=== PATIENT | male | born 1970 | race Caucasian/White ===

== ENCOUNTER 2024-12-17 14:33 | Emergency (ER) | payer BC, SELFPAY ==
[2024-12-17 14:41] VITALS: BP 134/88; PULSE 92; RESP 20; TEMP 36.7; O2SAT 97; BMI 28.4
--- NOTE | 2024-12-17 15:14 | ED.GENADULT ---
HPI - General Adult General Chief complaint: Unspecified Complaint, Adult Stated complaint: facial swelling Time Seen by Provider: 12/17/24 14:35 History of Present Illness HPI narrative: This 54-year-old male comes in with swelling in his left parotid area. He states that he notice this happening about 3 hours ago while eating lunch. He does not report any fever. He does have some pain in this area. He does not have any dental pain or ear pain. Related Data Home Medications ?Medication ?Instructions ?Recorded ?Confirmed No Known Home Medications 12/17/24 12/17/24 Allergies Allergy/AdvReac Type Severity Reaction Status Date / Time No Known Drug Allergies Allergy Verified 12/17/24 14:40 Review of Systems Status of ROS: Reports: 10 or more systems reviewed and unremarkable except as noted in History and below Narrative: Constitutional: No fevers, no weight gain or loss. Eyes: No discharge. No vision changes. HENT: No congestion, no sore throat, no ear pain. Cardiovascular: No chest pain, no palpitations. Respiratory: No shortness of breath, no wheezes, no cough. Gastrointestinal: No abdominal pain, no vomiting, no diarrhea. Genitourinary: No dysuria, no hematuria. Musculoskeletal: Normal range of motion. Skin: No rashes, no pruritis. Neurological: No dizziness, weakness, sensory change, speech change. Endo/Heme/Allergies: No bruising or bleeding. No polydipsia. Pysch: no suicidality, no anxiety, no insomnia. All other systems reviewed and are negative. Exam Narrative: Exam Narrative: Constitutional: Well-developed, well-nourished, no acute distress. HEENT: Left parotid area is distinctly larger than the right. The left parotid gland is palpable with a well-defined border. Oral exam appears normal. I do not see a prominence of the left Stensen's duct. Neck: Normal range of motion. Nontender. Supple. Heart: Regular. No murmurs. Normal rate. Intact distal pulses. Lungs: Clear to auscultation. No chest discomfort. No wheezes, rhonchi, or rales. Abdomen: Normal bowel sounds. Nontender. No rebound tenderness. Genitalia: Deferred. Back: No midline tenderness. Normal range of motion. Extremities: Normal range of motion. No injury. Skin: Intact. No rash. Warm. No erythema or pallor. Neurologic: No altered sensation. No weakness. Alert and oriented. Psychiatric: No suicidality. No anxiety or depression. No insomnia. Nursing notes and vitals signs are reviewed. Const: Vital Signs, click to edit/add: Vital Signs - 24 hr 12/17/24 14:41 Temperature 98.1 F Pulse Rate [Pulse Oximeter] 92 Respiratory Rate 20 Blood Pressure [Ri ght Upper Arm] 134/88 Pulse Oximetry 97 Oxygen Delivery Me thod Room Air Course Vital Signs Vital signs: Initial Vital Signs Temperature 98.1 F 12/17/24 14:41 Temperature Source Temporal Artery Scan 12/17/24 14:41 Pulse Rate 92 12/17/24 14:41 Respiratory Rate 20 12/17/24 14:41 Blood Pressure 134/88 12/17/24 14:41 Blood Pressure Mean 103 12/17/24 14:41 Pulse Oximetry 97 12/17/24 14:41 Oxygen Delivery Method Room Air 12/17/24 14:41 Vital Signs Temperature 98.1 F 12/17/24 14:41 Pulse Rate 92 12/17/24 14:41 Respiratory Rate 20 12/17/24 14:41 Blood Pressure 134/88 12/17/24 14:41 Pulse Oximetry 97 12/17/24 14:41 Oxygen Delivery Method Room Air 12/17/24 14:41 Temperature 98.1 F 12/17/24 14:41 Pulse Rate 92 12/17/24 14:41 Respiratory Rate 20 12/17/24 14:41 Blood Pressure 134/88 12/17/24 14:41 Pulse Oximetry 97 12/17/24 14:41 Oxygen Delivery Method Room Air 12/17/24 14:41 Medical Decision Making MDM Narrative Medical decision making narrative: This patient has a rather sudden and distinct onset of swelling in the left parotid gland region. This is much more typical of sialoadenitis. He is not showing any signs of infection. This all generated in the last couple hours. I did discuss the role of CT imaging but indicated that this condition is typically treated with conservative measures including milking the gland, warm compress, and sucking on hard candy such as lemon drops that will stimulate saliva production. I did advise him regarding signs and symptoms that would indicate a need for CT imaging or further evaluation. The patient is okay to be discharged home. I did provide an [employer] prescription for Toradol. Discharge Plan Discharge Clinical Impression: Acute sialoadenitis Patient Disposition: Home, Self-Care Condition: Unchanged Additional Instructions: Apply warm compress and gently milked the gland to facilitate drainage. Use hard candy such as lemon drops to stimulate saliva production. Take medication prescribed as needed and directed. Follow up with MD return if worsening symptoms occur. Prescriptions: No Action No Known Home Medications Stand Alone Forms: [employer] Info Instructions
--- OUTSIDE RECORDS SUMMARY | 2024-12-17 15:34 | XMS_ITS | Clinical Summary ---
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 Gender Identity Not on file Sexual Orientation Not on file Obstetrics History Last Filed Vital Signs Vital Sign Reading Time Taken Comments Blood Pressure 135/81 08/22/2014 2:01 PM CDT Pulse 69 08/22/2014 2:01 PM CDT Temperature 36.4 C (97.6 F) 08/22/2014 2:01 PM CDT Respiratory Rate 14 08/22/2014 2:01 PM CDT Oxygen Saturation 97% 08/22/2014 2:01 PM CDT Inhaled Oxygen Concentration - - Weight - - Height - - Body Mass Index - - Plan of Treatment Not on file Insurance [place] [id number] [place] [id number] Care Teams Flue Tile Press Operator Relationship Specialty Start Date End Date None . PCP - General 08/22/14
--- OUTSIDE RECORDS SUMMARY | 2024-12-17 15:34 | XMS_ITS | Clinical Summary ---
Author Organization [facility] Address [address] [place] [address] Care Team Providers Care Insurance Agents Supervisor Name Role Phone Elsewhere, Pcp Primary Care Provider Unavailabl e Source Comments Patient records contain information from all sites at [facility]. For routine questions regarding patient records, call [phone] during business hours, M-F 8:00 AM - 5:00 PM Central Time. Record requests for emergency care only can be directed to [phone] at any time.[facility] Allergies No known active allergies Medications * This document contains information received from the source organization and may not represent a complete record from that organization. naproxen (NAPROSYN) 500 mg tablet Take 1 tablet (500 mg total) by mouth 2 (two) times a day as needed for pain (pain). 30 tablet 05/29/2021 Active omeprazole (PriLOSEC) [address] Louis ons:Hiccup Take 1 capsule (20 mg total) by mouth daily. 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 from request for surgery [id number] Dizziness 07/21/2020 Resolved Problems Problem Noted Date Diagnosed Date Resolved Date Myringotomy Tube 08/16/2020 10/19/2020 Overview (08/16/2020): Added automatically from request for surgery [id number] Immunizations Immunization Administration Dates Next Due HepB Adult 12/27/2011,08/10/2011,07/05/2011 Td Preservative Free (TENIVAC, DECAVAC) 09/04/19 00 influenza LAIV (Nasal) (2 ye ars through 49 years) 01/05/2021,12/07/2019 Social History Tobacco Use Types Packs/Day Years Used Date Smoking Tobacco: Former Cigarettes Q uit: 02/11/2019 Smokeless Tobacco: Never Tobacco Cessation:Counseling Given: Not Answered Alcohol Use Standard Drinks/Week Comments Yes 0 (1 standard drink = 0.6 oz pur e alcohol) Humiliation, Afraid, Rape, and Kick questionnair e Answer Date Recorded Within the last year, have y ou been afraid of your partner or ex-partner? No 05/29/2021 Within the last year, have y ou been humiliated or emotionally abused in other ways by your partner or ex-partner? No Within the last year, have y ou been kicked, hit, slapped, or otherwise physically hurt by your partner or ex-partner? No 05/29/2021 Within the last year, have y ou been raped or forced to have any kind of sexual activity by your partner or ex-partner? No 05/29/2021 Hunger Vital Sign Answer Date Recorded Within the past 12 months, y ou worried that your food would run out before you got the money to buy more. Never true 05/30/19 22 Within the past 12 months, t he food you bought just didn't last and you didn't have money to get more. Never true 05/29/2021 PRAPARE - Transportation Answer Date Re corded In the past 12 months, has l ack of transportation kept you from medical appointments or from getting medications? No 09/2021 In the past 12 months, has l ack of transportation kept you from meetings, work, or from getting things needed for daily living? No 05/29/2021 Housing Stability Vital Sign Answer Massimo e Recorded In the last 12 months, was t here a time when you were not able to pay the mortgage or rent on time? No 05/29/2021 In the last 12 months, how many places have you lived? 1 05/29/2021 In the last 12 months, was t here a time when you did not have a steady place to sleep or slept in a custodial (including now)? No 05/29/2021 Education Answer Date Recorded What is the highest level of school you have completed or the highest degree you have received? Some college, no degree 06/20/2020 Sex and Gender Information Value Date Recorded Sex Assigned at Male 12/23/2020 1:45 AM CDT Legal Sex Male 4:22 PM STUNT MAN Gender Identity Male 06/20/2020 12:12 PM CDT Sexual Orientation Straight 06/20/2020 12 :12 PM CDT Last Filed Vital Signs Vital Sign Reading Time Taken Comments Blood Pressure 121/84 01/23/2023 5:39 PM CDT Pulse 65 01/23/2023 5:39 PM CDT Temperature 36.9 C (98.4 F) 01/23/2023 5:39 PM CDT Respiratory Rate 20 09/08/2021 4:47 PM CDT Oxygen Saturation 98% 01/23/2023 5:39 PM CDT Inhaled Oxygen Concentration - - Weight 89.5 kg (197 lb 5 oz) 09/08/2021 4:47 PM CDT Height 175 cm (5' 8.9) 09/05/2020 9:08 AM CDT Body Mass Index 29.22 09/05/2020 9:08 AM CDT Plan of Treatment Health Maintenance Due Date Last Done Comments CT Colonography 1972 Cologuard 1972 Colonoscopy 1972 Colorectal Cancer Screening 1972 FIT 1972 HIV Screening 1972 Hepatitis C Screening 1972 Lipid (Cholesterol) Screening 1972 DTaP,Tdap,and Td Vaccines (1 - Tdap) 09/05/1999 09/04/1999 Pneumococcal vaccine (50+ years) (1 of 1 - PCV) 2022 Zoster Vaccines (1 of 2) 2022 Depression Screening (Annual PHQ-2) 03/25/2024 COVID-19 Vaccine ( season) 2024 01/31/2022, 03/09/2021, 06/30/2020, Additional history exists Influenza Vaccine (#1) 2024 2, 01/05/2021, 12/07/2019 Fasting Glucose for Diabetes Screening 01/23/2026 01/23/2023, 06/20/2020 Hepatitis B Vaccines Completed 12/27/2011, 08/10/2011, 07/05/2011 IPV Vaccines Aged Out No longer eligi ble based on patient's age to complete this topic Medical Devices Implanted Type Area Top Collar Maker Device Identifier Shelf Expiration Date Model / Serial / Lot Ear Implant Ear Implant Ear Description:Right Ear Procedures Procedure Name Priority Date/Time Associated Diagnosis Comments BASIC METABOLIC PANEL, S/P Routine 01/23/2023 6:37 PM CDT Hiccup from Last 3 Months or Most Recently Relevant to Health Maintenance Results * Basic Metabolic Panel (01/23/2023 6:37 PM CDT) Potassium, P 4.4 3.6 - 5.2 mmol/L 01/23/2023 7:00 PM CDT [facility] Sodium, P 139 135 - 145 mmol/L 01/23/2023 7:00 PM CDT [facility] Chloride, P 103 98 - 107 mmol/L 01/23/2023 7:00 PM CDT [employer] Bicarbonate, P 22 22 - 29 mmol/L 01/23/2023 7:00 PM CDT [employer] Anion Gap, P 14 7 - 15 01/23/2023 7:00 PM CDT [facility] BUN (Blood Urea Nitrogen), P 14 8 - 24 mg/dL 01/23/2023 7:00 PM CDT [facility] Creatinine 1.11 0.74 - 1.35 mg/dL 01/23/2023 7:00 PM CDT [facility] Estimated GFR (eGFR) 81 >=60 mL/min/BSA 01/23/2023 7:00 PM CDT OW[facility] Comment: Estimated GFR calculated using the 2020 CKD_EPI creatinine equation. Calcium, Total, P 9.6 8.6 - 10.0 mg/dL 01/23/2023 7:00 PM CDT OW[facility] Glucose, P 102 70 - 140 mg/dL 01/23/2023 7:00 PM CDT [facility] Blood (Blood, Venous) 01/23/2023 6:37 PM CDT 01/23/2023 6:38 PM CDT Dorota Smith APRN, C.N.P., D.N.P. LAB BLOOD ADD- ON Final Result [facility] [address] [place] [address], [place] [facility] [place] [address] [place] [address] from Last 3 Months or Most Recently Relevant to Health Maintenance Insurance [address] [place] [id number] [employer] [place] [id number] Care Teams Insurance Agents Supervisor Relationship Specialty Start Date End Date Elsewhere, Pcp PCP - General Family Medicine 06/20/20
== END 2024-12-17 15:44 | disposition home or self-care (01) ==
LOC: ED 15:30
PROVIDERS: Emergency Provider Emergency Medicine Emergency Medical Services
DX: K11.21 Acute sialoadenitis (principal)
CPT/HCPCS: 99283; 99284